=== PATIENT | female | born 1975 | race Caucasian/White ===

== ENCOUNTER 2018-01-03 13:40 | Emergency (ER) | payer OTHER ==
[~2018-01-03] VITALS: Ht 180.3 cm; Wt 113.4 kg
--- NOTE | 2018-01-03 15:22 | ED HEADACHE COMPLAINT ---
History of Present Illness General Chief Complaint: Headache Stated Complaint: HEADACHE Source: patient Exam Limitations: no limitations Vital Signs & Intake/Output Vital Signs & Intake/Output Vital Signs Date Time Temp Pulse Resp B/P B/P Pulse O2 O2 Flow FiO2 Mean Ox Delivery Rate 01/03 1907 98.3 60 18 116/58 97 Room Air 01/03 1819 98.4 64 18 133/67 98 Room Air 01/03 1343 98.8 67 18 119/78 98 Room Air Allergies Coded Allergies: acetaminophen (From PERCOCET) (UNKNOWN 01/03/18) oxycodone (From PERCOCET) (UNKNOWN 01/03/18) penicillin G (UNKNOWN 01/03/18) Triage Note: 42 YO FEMALE TO TRIAGE C/O HEADACHE WITH R SIDED FACIAL NUMBESS. 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 STATES THE R SIDED FACIAL NUMBESS HAS BEEN GOING ON FOR A COUPLE DAYS BUT STATES THE HEADACHE IS WORSE TODAY. PT A&O X3. Triage Nurses Notes Reviewed? yes Onset: Yesterday afternoon Duration: constant Quality/Severity: severe, sharp, stabbing, throbbing Severity Numbers: 7 No Modifying Factors: none : No Patient currently breastfeeds: No HPI: 42-year-old history of migraines female presents to emergency department complaining of right-sided migraine. Patient reports she was in a 5K race yesterday when she started to have a gradual onset of a right-sided headache. Since then the headache has not gone away. It has been constant since onset, 7 out of 10. 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 Patient reports this feels like her typical migraine although her migraines have been getting worse over the years. She did try Motrin at home which does not typically help. Since her migraine in October she has not been feeling right. The right side of her face is numb and she has trouble seeeing out of the upper right corner of her right eye. States it is foggy and dark. She is not having any associated shortness of breath or chest pain. She has no numbness or tingling in the extremities. No nausea or vomiting. No abdominal pain. Patient recently had an MRI in november which showed small chronic infarct within right pariatle lobe and anteromedial left occipital lobe, also chronic lacunar infarct in left cerebellum. Also had MRA of the head and neck on January 01 which was unremarkable. She sees Dr. Franklin for neurology. She has a hx of gastric cancer, no current chemo, been in remission for 8 years. She did recently start nifedipine yesterday. She also had a cardiology workup last week which she reports was normal. (Steve MOONEY,Carson) Past History Travel History Traveled to [place] past 21 day No Medical History Any Pertinent Medical History? 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 No (Carson Wilson PA-C) Review of Systems Review of Systems Constitutional: Reports: see HPI. Eyes: Reports: see HPI. Ears, Nose, Throat, Mouth: Reports: no symptoms. Respiratory: Reports: no symptoms. Cardiovascular: Reports: no symptoms. Gastrointestinal/Abdominal: Reports: no symptoms. Genitourinary: Reports: no symptoms. Musculoskeletal: Reports: no symptoms. Skin: Reports: no symptoms. Neurological/Psychological: Reports: see HPI. Hematologic/Endocrine: Reports: no symptoms. Endocrine: Reports: no symptoms. Immunologic/Allergic: Reports: no symptoms. All Other Systems: Reviewed and Negative (Carson Wilson PA-C) Physical Exam Physical Exam General Appearance: well developed/nourished, no apparent distress, alert, awake Head: atraumatic, normal appearance Eyes: Bilateral: normal appearance, PERRL, EOMI. Ears, Nose, Throat: normal pharynx, normal ENT inspection Neck: supple, full range of motion, NEg brudzinski Respiratory: normal breath sounds, chest non-tender, no respiratory distress, lungs clear Cardiovascular: regular rate/rhythm, normal peripheral pulses, Normal s1,s2, no M/rR/G Gastrointestinal: normal bowel sounds, soft Extremities: normal inspection, no edema Psychiatric: Normal mood and affect Cranial Nerves: Right sided facial numbness, right eye superiolateral visual field defect, Otherwise CN 2-12 grossly intact Coordination/Gait: normal finger to nose, normal gait, Test of Skew negative Motor/Sensory: no motor/sensory deficits, Strength 5/5 BUE and BLE, sensation is grossly intact. Skin: intact, normal color Core Measures Sepsis Present: No Sepsis Focused Exam Completed? No (Steve MOONEY,Carson) Progress Differential Diagnosis: carotid dissection, cav sinus thromb, cluster MITCHELL, encephalitis, IC mass/tumor, intracranial Hem., meningitis, migraine MITCHELL, SSS thrombosis, subarach. Hem., tension MITCHELL, temporal arteritis, cerebral vasculitis , TIA Plan of Care: Orders Procedure Date/time Status LACTIC ACID 01/03 164 Active URINE 01/03 150 Complete TROPONIN LEVEL 01/03 150 Complete URINALYSIS 01/03 1348 Complete LACTIC ACID 01/03 1348 Complete COMPREHENSIVE METABOLIC PANEL 01/03 1348 Complete CBC WITHOUT DIFFERENTIAL 01/03 134 Complete Laboratory Tests 01/03/18 1546: Troponin I < 0.01 01/03/18 1546: Anion Gap 12, Estimated GFR > 60, BUN/Creatinine Ratio 20.0, Glucose 101 H, Lactic Acid 0.9, Calcium 9.5, Total Bilirubin 0.8, AST 25, ALT 27, Alkaline Phosphatase 59, Total Protein 7.8, Albumin 5.0, Globulin 2.8, Albumin/Globulin Ratio 1.8, CBC w Diff NO MAN DIFF REQ, RBC 4.98, MCV 80.1 L, MCH 26.0 L, MCHC 32.4 L, RDW 15.0 H, MPV 8.7, Gran % 79.2 H, Lymphocytes % 14.9 L, Monocytes % 4.8, Eosinophils % 0.9, Basophils % 0.2, Absolute Granulocytes 4.6, Absolute Lymphocytes 0.9 L, Absolute Monocytes 0.3, Absolute Eosinophils 0.1, Absolute Basophils 0 01/03/18 1540: Urine Test NEGATIVE 01/03/18 1540: Urine Color YEL, Urine Clarity CLEAR, Urine pH 7.0, Ur Specific Thorpe 1.010, Urine Protein NEG, Urine Ketones NEG, Urine Nitrite NEG, Urine Bilirubin NEG, Urine Urobilinogen 0.2, Ur Leukocyte Esterase TRACE H, Ur Microscopic SEDIMENT EXAMINED, Urine WBC RARE, Ur Epithelial Cells RARE, Urine Hemoglobin TRACE- INTACT, Urine Glucose NEG Diagnostic Imaging: Viewed by Me: CT Scan. Discussed w/RAD: CT Scan. Radiology Impression: PATIENT: BALJINDER MINA PRESENT AGE: 42 PATIENT ACCOUNT NO: [id number] : 73 LOCATION: [facility] ORDERING PHYSICIAN: Carson Wilson PA-C SERVICE DATE: 01/03/184996 EXAM TYPE: CAT - CT HEAD WO IV CONTRAST EXAMINATION: CT HEAD WITHOUT CONTRAST CLINICAL INFORMATION: Migraine headache, right-sided. Assess for hemorrhage, stroke. Age 42. COMPARISON: MRI brain 12/17/2017, MRA brain 01/01/2018. TECHNIQUE: Contiguous axial imaging was performed from the skull base to vertex without intravenous administration of contrast. DLP: 555 mGy-cm FINDINGS: There is no intracranial hemorrhage, hematoma, or extra-axial fluid collection. The ventricles are normal in size. There is no hydrocephalus, edema, or mass effect. There is small old infarct right parietal lobe similar to the MR 12/17/2017. Small focal for Virchow-Hair perivascular space again seen inferior right basal ganglia. There is no visible acute territorial infarct or mass lesion. The calvarium appears intact. There is no pneumocephalus or orbital emphysema. The visualized sinuses and middle ears and mastoid air cells show no significant mucosal thickening. There are no air-fluid levels. IMPRESSION: No acute intracranial abnormality. DICTATED BY: Kermit Cannon MD DATE/TIME DICTATED:1699 OFFICE RN:MORALES DATE/TIME TRANSCRIBED:01/03/181699 CONFIDENTIAL, DO NOT COPY WITHOUT APPROPRIATE AUTHORIZATION. <Electronically signed in Other Vendor System> SIGNED BY: Kermit Cannon MD 01/03/18 171 Initial ED EKG: none Comments: Update at 1615: Pt headache down to a 4/10 feeling better after medications. IVF running, waiting for CT. Update at 1900: CT reviewed and negative. Pt started to have migraine symptoms again, 5 out of 10. Imitrex given without relief. IV Tylenol and Decadron ordered. Patient had significant relief with IV Tylenol. States currently headaches 1/10. Would like to be discharged. IV mag order DC as pt feeling better. Patient does have an extensive migraine history dating back to when she was young. Her migraines have been getting progressively worse. She does see a neurologist Dr. Franklin. She has had a recet cardiac workup for her migraines which was ultimately negative. Most recently an MRA of head and neck which was negative. She also had a previous recent MRI of the head which revealed multiple small chronic infarcts. This particular migraine started yesterday while doing a 5K run. Given her history a CT was ordered which was unremarkable. She has no focal neuro deficits on exam other than chronic right facial numbness and superior lateral right eye visual field deficit. These have been present for over the past month which are currently being evaluated by her neurologist. Ultimately patient had significant relief with IV Tylenol. Encourage patient to follow with her neurologist within a week, preferably within 48 hours. She should return immediately with any new or worsening symptoms as discussed in detail. She is in agreement with this plan of care. Case discussed with Dr. Olson who is in agreement with plan of care. (Steve MOONEY,Carson) Departure Departure Disposition: ER WALKOUT Condition: Stable Clinical Impression Primary Impression: Migraine Referrals: Catherine FALCON,Dennise Fontenot (PCP/Family) Additional Instructions: Your CT scan today was normal. Your given Reglan, Benadryl, Toradol initially. You were then given Imitrex with little relief. IV Tylenol and Decadron were given with symptomatic relief. You can continue to take Tylenol or Motrin for headaches at home. You should follow-up with your neurologist within 48-72 hours. Return to the emergency department immediately with any new or worsening symptoms. Departure Forms: Customer Survey General Discharge Information (Carson Wilson PA-C) PA/SHIPPING CLERK Co-Sign Statement Statement: ED Attending supervision documentation- I saw and evaluated the patient. I have also reviewed all the pertinent lab results and diagnostic results. I agree with the findings and the plan of care as documented in the PA's/SHIPPING CLERK's documentation. x I have reviewed the ED Record and agree with the PA's/SHIPPING CLERK's documentation. [] Additions or exceptions (if any) to the PAs/SHIPPING CLERK's note and plan are summarized below: [] (Wesley FALCON,Ryan)
[2018-01-03 16:09] LABS: ABSOLUTE BASOPHIL COUNT 0 /CUMM (0.0-0.2); ABSOLUTE EOSINOPHIL COUNT 0.1 /CUMM (0.0-0.7); ABSOLUTE GRANULOCYTE CT 4.6 /CUMM (1.4-6.5); ABSOLUTE LYMPH COUNT 0.9 /CUMM (1.2-3.4); ABSOLUTE MONOCYTE COUNT 0.3 /CUMM (0.10-0.60); BASOPHIL % 0.2 % (0.0-2.0); EOSINOPHIL % 0.9 % (0-5); GRANULOCYTE % 79.2 % (42.2-75.2); HEMATOCRIT 39.9 % (37-47); MEAN CORPUSCULAR HGB CONC 32.4 G/DL (33.0-37.0); MEAN CORPUSCULAR VOLUME 80.1 FL (81.0-99.0); MEAN PLATELET VOLUME 8.7 FL (7.4-10.4); PLATELET COUNT 207 /CUMM (130-400); RED BLOOD CELL CT 4.98 /CUMM (4.20-5.40); WHITE BLOOD CELL COUNT 5.9 /CUMM (4.8-10.8)
--- NOTE | 2018-01-03 17:11 | CT SCAN REPORT ---
EXAMINATION: CT HEAD WITHOUT CONTRAST CLINICAL INFORMATION: Migraine headache, right-sided. Assess for hemorrhage, stroke. Age 42. COMPARISON: MRI brain 12/17/2017, MRA brain 01/01/2018. TECHNIQUE: Contiguous axial imaging was performed from the skull base to vertex without intravenous administration of contrast. DLP: 555 mGy-cm FINDINGS: There is no intracranial hemorrhage, hematoma, or extra-axial fluid collection. The ventricles are normal in size. There is no hydrocephalus, edema, or mass effect. There is small old infarct right parietal lobe similar to the MR 12/17/2017. Small focal for Virchow-Hair perivascular space again seen inferior right basal ganglia. There is no visible acute territorial infarct or mass lesion. The calvarium appears intact. There is no pneumocephalus or orbital emphysema. The visualized sinuses and middle ears and mastoid air cells show no significant mucosal thickening. There are no air-fluid levels. IMPRESSION: No acute intracranial abnormality.
[2018-01-03 19:07] VITALS: BP 116/58
== END 2018-01-03 19:10 | disposition admitted as inpatient to this hospital (09) ==
LOC: ERH 13:40
PROVIDERS: Physician Assistant
DX: R51 Headache (principal)
CPT/HCPCS: 81001; 81025; 99281; J0131; J1200; J1885; J2765; J3030